=== PATIENT | female | born 1975 | race Caucasian/White ===

== ENCOUNTER 2019-02-12 21:51 | Emergency (ER) | payer OTHER ==
[~2019-02-12] VITALS: Ht 172.7 cm; Wt 113.6 kg
[2019-02-12] MEDS ORDERED: LIDOcaine 1% W/epiNEPHrine 1:200,000 10ml vial IJ ONE (22:35)
[2019-02-12] MEDS ORDERED: bacitracin 15gm ointment TP ONE (22:35)
--- NOTE | 2019-02-12 23:04 | NUR ---
DAISY HARLEY POINTER FINGER OF THE RIGHT HAND. 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 NO COMPLAINTS OF PAIN DURNING THE PROCEDURE
--- NOTE | 2019-02-12 23:24 | NUR ---
MITCH TO SUTURE PATIENT
[2019-02-12 23:41] VITALS: BP 145/75
== END 2019-02-12 23:43 | disposition home or self-care (01) ==
LOC: ER 21:52
DX: S61.210A Laceration without foreign body of right index finger without damage to nail, initial encounter (principal); S61.213D Laceration without foreign body of left middle finger without damage to nail, subsequent encounter; J45.909 Unspecified asthma, uncomplicated; Z90.49 Acquired absence of other specified parts of digestive tract; Z88.1 Allergy status to other antibiotic agents; Z88.8 Allergy status to other drugs, medicaments and biological substances; W26.0XXA Contact with knife, initial encounter; Y93.89 Activity, other specified; Y92.89 Other specified places as the place of occurrence of the external cause; Y99.8 Other external cause status
CPT/HCPCS: 12001; 99283

== ENCOUNTER 2019-02-20 13:15 | Outpatient (CLI) | payer OTHER ==
[~2019-02-20] VITALS: Ht 172.7 cm; Wt 113.4 kg
[2019-02-20] MEDS ORDERED: albuterol 2.5 MG/3 ML nebule NEB ONE (14:20)
== END 2019-02-20 23:59 | disposition home or self-care (01) ==
LOC: RT 13:15
PROVIDERS: ATTEND Orthopaedic Surgery
DX: J45.991 Cough variant asthma (principal); F17.210 Nicotine dependence, cigarettes, uncomplicated
CPT/HCPCS: 71046; 94060; 94760

== ENCOUNTER 2023-05-28 11:34 | Emergency (ER) | payer OTHER ==
[~2023-05-28] VITALS: Ht 172.7 cm; Wt 113.6 kg
[2023-05-28 11:35] VITALS: BP 169/110; PULSE 84; RESP 16; TEMP 98; O2SAT 99
== END 2023-05-28 12:12 | disposition home or self-care (01) ==
LOC: ER 11:34
DX: S61.101A Unspecified open wound of right thumb with damage to nail, initial encounter (principal); J45.909 Unspecified asthma, uncomplicated; Z88.1 Allergy status to other antibiotic agents; Z88.8 Allergy status to other drugs, medicaments and biological substances; Z98.890 Other specified postprocedural states; Z90.49 Acquired absence of other specified parts of digestive tract; W26.0XXA Contact with knife, initial encounter; Y93.89 Activity, other specified; Y92.89 Other specified places as the place of occurrence of the external cause; Y99.8 Other external cause status
CPT/HCPCS: 11730; 99281; 99284; A6449

== ENCOUNTER 2024-01-12 18:47 | Emergency (ER) | payer BC, OTHER ==
[~2024-01-12] VITALS: Ht 172.7 cm; Wt 102.3 kg
[2024-01-12] MEDS ORDERED: AMLO5TAB4 PO (19:00)
[2024-01-12] MEDS: amLODIPine 5mg tablet PO ONE (19:01)
[2024-01-12 19:04] VITALS: BP 176/89; PULSE 75; RESP 18; O2SAT 99
[2024-01-12 19:50] VITALS: TEMP 98.7
== END 2024-01-12 19:51 | disposition home or self-care (01) ==
LOC: ER 18:48
DX: I10 Essential (primary) hypertension (principal); J45.909 Unspecified asthma, uncomplicated; Z90.49 Acquired absence of other specified parts of digestive tract; Z88.1 Allergy status to other antibiotic agents; Z79.899 Other long term (current) drug therapy; Z90.710 Acquired absence of both cervix and uterus
CPT/HCPCS: 99283